=== PATIENT | female | born 1980 | race Hispanic/Latino ===

== ENCOUNTER → 2018-04-11 | Outpatient (CLI) | payer BC | END | disposition home or self-care (01) | LOC: OIH 13:20 | PROVIDERS: ATTEND Internal Medicine | DX: R07.1 Chest pain on breathing (principal) | CPT/HCPCS: 71046 ==

== ENCOUNTER → 2023-01-22 | Outpatient (CLI) | payer OTHER | END | disposition home or self-care (01) | LOC: RAH 09:25 | PROVIDERS: ATTEND Internal Medicine | DX: M25.562 Pain in left knee (principal); M70.50 Other bursitis of knee, unspecified knee; M23.92 Unspecified internal derangement of left knee | CPT/HCPCS: 73560 ==